=== PATIENT | female | born 1970 | race Caucasian/White ===

== ENCOUNTER → 2019-12-31 16:06 | Outpatient (CLI) | payer OTHER ==
[~2019-12-31 16:06] MED LIST: AMOX1TAB12 PO; CIPRO500 MG PO; ESTRADIOL0.5 MG PO; FLUCONAZOLE200 MG PO; IBUPROFEN800 MG PO; INTESTINEX680 MG PO; NEURONTIN300 MG PO; PROGESTERONE200 MG
== END | disposition home or self-care (01) ==
LOC: RAD 16:06
DX: J40 Bronchitis, not specified as acute or chronic (principal); J32.8 Other chronic sinusitis

== ENCOUNTER 2020-03-25 15:37 | Outpatient (CLI) | payer OTHER | END 2020-03-25 18:00 | disposition home or self-care (01) | LOC: RAD 15:37 | PROVIDERS: ATTEND Internal Medicine Pulmonary Disease | DX: J20.8 Acute bronchitis due to other specified organisms (principal) ==

== ENCOUNTER 2022-01-15 13:49 | Outpatient (CLI) | payer OTHER | END 2022-01-15 13:59 | disposition home or self-care (01) | LOC: RAD 13:49 | DX: J12.9 Viral pneumonia, unspecified (principal) ==

== ENCOUNTER 2023-01-07 13:43 | Outpatient (CLI) | payer OTHER | END 2023-01-07 13:59 | disposition home or self-care (01) | LOC: SONOGRAMA 13:43 | PROVIDERS: ATTEND Plastic Surgery | DX: R22.31 Localized swelling, mass and lump, right upper limb (principal) ==